=== PATIENT | male | born 1990 ===

== ENCOUNTER 2016-08-10 20:00 | Emergency (ER) | payer SELFPAY ==
--- NOTE | 2016-08-11 07:32 | RAD ---
KNEE- LEFT 4 OR MORE VIEWS COMPARISON: None. HISTORY: Left knee giving out approximately 2 hours ago while walking. Reports history of similar pain approximately one year ago. FINDINGS: Views: Left knee AP, internal rotation, external rotation, and lateral Alignment: Normal. Bones: Normal. Joints: Normal. Soft tissues: Normal. IMPRESSION: 1. Normal study.
== END 2016-08-10 21:49 | disposition home or self-care (01) ==
LOC: ED 20:00
DX: M25.562 Pain in left knee (principal); X58.XXXA Exposure to other specified factors, initial encounter; Y93.01 Activity, walking, marching and hiking; Y92.9 Unspecified place or not applicable